=== PATIENT | female | born 1960 | race Caucasian/White ===

== ENCOUNTER → 2016-11-05 16:41 | Outpatient (CLI) | payer OTHER | END | disposition home or self-care (01) | LOC: D.MAMMO 10-29 10:00 | DX: Z12.31 Encounter for screening mammogram for malignant neoplasm of breast (principal) ==

== ENCOUNTER → 2017-02-19 19:53 | Outpatient (CLI) | payer OTHER | END | disposition home or self-care (01) | LOC: D.LABREF 19:53 | DX: N39.0 Urinary tract infection, site not specified (principal) ==

== ENCOUNTER → 2017-04-03 19:37 | Outpatient (CLI) | payer OTHER | END | disposition home or self-care (01) | LOC: D.LABREF 19:37 | DX: M17.11 Unilateral primary osteoarthritis, right knee (principal); Z11.8 Encounter for screening for other infectious and parasitic diseases ==

== ENCOUNTER 2017-04-15 05:35 | Inpatient (IN) | payer OTHER ==
[2017-04-12 11:26] LABS: BASOPHILS 0.6 % (0-2); EOSINOPHILS 3.2 % (0-7); HEMATOCRIT 41.9 % (36.0-48.0); HEMOGLOBIN 13.9 g/dL (12-16); IMMATURE GRANULOCYTES 0.4 % (0-5); LYMPHOCYTES 30.5 % (15-50); MCH 29.1 pg (26.0-34.0); MCHC 33.2 g/dL (31.0-37.0); MCV 87.8 fL (80.0-100.0); MEAN PLATELET VOLUME 10.3 fL (7.4-10.4); MONOCYTES 7.5 % (2-11); NEUTROPHILS 57.8 % (40-80); PLATELET COUNT 236 10x3/uL (130-400); RBC 4.77 10x6/uL (4.00-5.40); RDW 12.9 % (11.5-14.5); WBC 5.3 10x3/uL (4.8-10.8)
[2017-04-12 11:46] LABS: ANION GAP 9.9 mmol/L (8-16); CALCIUM 9.3 mg/dL (8.5-10.1); CARBON DIOXIDE 30.9 mmol/L (21.0-32.0); CREATININE - SERUM 0.9 mg/dL (0.6-1.3); POTASSIUM - SERUM 3.8 mmol/L (3.5-5.1)
[2017-04-12 11:51] LABS: APTT 25.7 SECONDS (22.8-39.4); INR 0.97 (0.85-1.17); PROTIME 12.7 SECONDS (11.6-15.0)
[2017-04-12 11:52] LABS: APPEARANCE HAZY (CLEAR); BACTERIA MODERATE /hpf (NONE SEEN); BILIRUBIN NEGATIVE (NEGATIVE); COLOR YELLOW (YELLOW); EPITHELIAL CELLS 0-5 /hpf (0-5); GLUCOSE NEGATIVE (NEGATIVE); KETONE NEGATIVE (NEGATIVE); LEUKOCYTE ESTERASE 2+ (NEGATIVE); MUCUS <1+ /lpf (NONE SEEN); NITRITE NEGATIVE (NEGATIVE); PROTEIN NEGATIVE (NEGATIVE); RED CELLS - URINE OCC /hpf (0-5); UROBILINOGEN NORMAL (NORMAL); WHITE CELLS - URINE 0-5 /hpf (0-5)
[2017-04-15] VITALS (11 sets, daily range): BP systolic 89–137; BP diastolic 54–91; Ht 160 cm; Wt 95.9 kg
[~2017-04-15] VITALS: Ht 160 cm; Wt 95.9 kg
[~2017-04-15 05:35] MED LIST: AZO YEAST PO; CATAPRES0.1 MG PO; FIBER-TABS625 MG PO; HYDROCHLOROTHIA25 MG PO; KLOR-CON 1010 MEQ PO; LEXAPRO20 MG PO; OMEPRAZOLE20 M1 PO; TENORMIN25 MG PO; VITAMIN D31000 UNI2 PO; ZYRTEC10 MG PO
--- NOTE | 2017-04-15 08:30 | NUR ---
DR NEWMAN NOTIFIED OF PATIENT'S UA RESULTS FROM 04/12/17, NO NEW ORDERS RECEIVED
[2017-04-15 09:10] LABS: APPEARANCE CLEAR (CLEAR); BILIRUBIN NEGATIVE (NEGATIVE); COLOR YELLOW (YELLOW); GLUCOSE NEGATIVE (NEGATIVE); KETONE NEGATIVE (NEGATIVE); LEUKOCYTE ESTERASE TRACE (NEGATIVE); NITRITE NEGATIVE (NEGATIVE); PROTEIN NEGATIVE (NEGATIVE); UROBILINOGEN NORMAL (NORMAL)
[2017-04-15 09:13] LABS: BACTERIA FEW /hpf (NONE SEEN); EPITHELIAL CELLS RARE /hpf (0-5); RED CELLS - URINE OCC /hpf (0-5); WHITE CELLS - URINE OCC /hpf (0-5)
--- NOTE | 2017-04-15 11:40 | NUR ---
PATIENT RECEIVED TO FLOOR FROM PACU VIA BED. NO SIGNS OF DISTRESS NOTED. VITAL SIGNS STABLE. DENIES PAIN. DRESSING TO RIGHT KNEE CLEAN, DRY AND INTACT. ICE PACK IN PLACE. SCDS ON BILATERALLY. ORIENTED TO ROOM. INCENTIVE SPIROMETER AND TEACHING PROVIDED. DEMONSTRATES CORRECT USE. SIDE RAILS UP X2. BED IN LOW POSITION. CALL LIGHT IN REACH. BED ALARM ON.
--- NOTE | 2017-04-15 13:25 | NUR ---
ALERT IN BED EATING LUNCH. TOLERATING WELL. VITAL SIGNS STABLE. FAMILY PRESENT. DENIES PAIN. SIDE RAILS UP X2. BED IN LOW POSITION. CALL LIGHT IN REACH.
--- NOTE | 2017-04-15 14:39 | NUR ---
PATIENT IN LOW SORIANO POSITION RESTING QUIETLY WITH EYES CLOSED. RESPIRATIONS EVEN AND UNLABORED. VITAL SIGNS STABLE. IV ABX INITIATED. SIDE RAILS UP X3. BED IN LOW POSITION. CALL LIGHT IN REACH. BED ALARM ON.
--- NOTE | 2017-04-15 16:10 | NUR ---
ALERT IN BED USING INCENTIVE SPIROMETER. DENIES PAIN. FAMIY PRESENT. SIDE RAILS UP X2. BED IN LOW POSITION. CALL LIGHT IN REACH. BED ALARM ON.
--- NOTE | 2017-04-15 17:40 | NUR ---
RIGHT LEG PLACED IN CPM. WELL TOLERATED. DENIES NEEDS. SIDE RAILS UP X2. BED IN LOW POSITION. CALL LIGHT IN REACH.
--- NOTE | 2017-04-15 20:52 | NUR ---
REC'D. IN BED LGE.#VISITORS AT BEDSIDE.ACEWRAP RT. KNEEIN CPM FOOT WARM WITH GOOD PULSE PRESENT .WILL CONTINUE TO MONITOR FOR ANY CHGES. AND IN NEUROVASCULAR STATUS AND FOLLOW CURRENT PLAN OF CARE
[2017-04-16] VITALS: BP 122/66
[2017-04-16 04:00] VITALS: BP 125/48
[2017-04-16 05:24] LABS: HEMATOCRIT 34.5 % (36.0-48.0); HEMOGLOBIN 11.4 g/dL (12-16); MCH 28.8 pg (26.0-34.0); MCV 87.1 fL (80.0-100.0); MEAN PLATELET VOLUME 10.4 fL (7.4-10.4); RBC 3.96 10x6/uL (4.00-5.40); RDW 12.8 % (11.5-14.5)
--- NOTE | 2017-04-16 08:00 | NUR ---
PT RECIEVED ON WALKING ROUNDS CPM IN PLACE TO RIGHT KNEE WITH SURGICAL DRESSING IN PLACE PIV NOTED TO BE SWOLLEN AND TENDER RESITED IV TO RIGHT FORARM 22 GA X 1 STICK. TOLERATED WELL. CALL LIGHT IN REACH SIDE RAILS UP X 2 VOICES ALL NEEDS DENIES PAIN OR DISCOMFORT BLOCKK STILL EFECTIVE HAS MINIMAL FEELING NOTED TO PLANTAR SIDE RIGHT FOOT NO FELLING NOTED TO DORSAL RIGHT FOOT.
[2017-04-16 08:08] VITALS: BP 130/64
--- NOTE | 2017-04-16 11:21 | NUR ---
* Is the patient Alert and Oriented? Yes 0 * How many steps to enter\exit or inside your home? ramp 0 * PCP Lisa 0 * Pharmacy [facility] 0 * Preadmission Environment Home with Family 0 * ADLs Independent 0 * Equipment Bedside Commode Rolling Walker Shower Chair 0 * List name and contact numbers for known caregivers / representatives who currently or will assist patient after discharge: Markus Parnell (spouse) [phone] 0 * Community resources currently utilized None 0 * Additional services required to return to the preadmission environment? Yes 0 * Can the patient safely return to the preadmission environment? Yes 0 * Has this patient been hospitalized within the prior 30 days at any hospital? No 0 Grand Total: 0 Patient Name: BIB PARNELL Admission Status: Elective Accout number: [id number] Admission Date: 04-15-2017 : 1960 Admission Diagnosis:UNILATERAL PRIMARY OSTEOARTHRITIS, RIGHT KNEE Attending: PUNEET Current LOS: 1 Anticipated DC Date: Planned Disposition: Home Primary Insurance: [employer] PPO Discharge Planning Comments: CM met with patient to assess discharge planning needs. Patient currently lives with her (Markus) where she is independent. She has a ramp to enter her home with 1 small step. She has a shower chair, walker, and elevated toilet seat at home. CPM machine will be delivered via [facility]. Eli notified. Patient plans on using [facility]. CM will continue to follow and assist with discharge planning needs. PCP: Lisa Pharmacy: [facility] Markus Parnell (Spouse) [phone] Lay Midwife: Bridget Sampson
[2017-04-16 12:00] VITALS: BP 128/62
--- NOTE | 2017-04-16 12:21 | NUR ---
PATIENT SITTING UP IN CHAIR WITH NO COMPLAINTS AT THIS TIME. IV INTACT. FAMILY AT SIDE. CALL LIGHT WITHIN REACH.
[2017-04-16 16:32] VITALS: BP 113/53
--- NOTE | 2017-04-16 16:41 | NUR ---
PT SAT UP IN CHAIR FOR SEVERAL HOURS TODAY UP WITH THERAPY WITH ASSIST. TOLERATED WELL FAMILY AT BEDSIDE. CALL LIGHT IN REACH BACK TO BED AFTER LUNCH.
[2017-04-16 20:00] VITALS: BP 135/60
--- NOTE | 2017-04-16 20:00 | NUR ---
REC'D. IN BED IN CPM SHARI. WELL.DENIES ANY C/O PAIN/NUMBNESS OR TINGLING AT PRESENT TIME PEDAL PULSE PRESENT. ACEWRAP DRY AND INTACT TO RT. LEG. WILL CONTINUE TO MONITOR FOR ANY CHGES IN NEUROVASCULAR STATUS AND FOLLOW CURRENT PLAN OF CARE.
[2017-04-17] VITALS: BP 155/78
--- NOTE | 2017-04-17 00:35 | NUR ---
EYES CLOSED RESPIRATIONS WITH EASE AND UNLABORED.
[2017-04-17 04:00] VITALS: BP 172/83
[2017-04-17 05:17] LABS: HEMATOCRIT 34.5 % (36.0-48.0); HEMOGLOBIN 11.4 g/dL (12-16); MCV 87.8 fL (80.0-100.0); MEAN PLATELET VOLUME 10.7 fL (7.4-10.4); RBC 3.93 10x6/uL (4.00-5.40); RDW 13.1 % (11.5-14.5); WBC 8.5 10x3/uL (4.8-10.8)
[2017-04-17 08:01] VITALS: BP 151/85
--- NOTE | 2017-04-17 08:01 | NUR ---
PRN PERCOCET ADMINISTERED FOR PAIN 10/10 INCISIONALLY. CPM REMAINS ON AND IN WORKING ORDER. BED ALARM ON AND SRX2. CALL LIGHT IN REACH AND LALO LEIGH IN ROOM ASSESSING PT.
--- NOTE | 2017-04-17 08:30 | NUR ---
CPM OFF AT THIS TIME. ICE TO RIGHT KNEE.
--- NOTE | 2017-04-17 09:10 | NUR ---
PRN TORADOL ADMINISTERED FOR PAIN 04/15. IV TO RIGHT FOREARM PATENT. UP TO CHAIR PER PHYSICAL THERAPY. DENIES NEEDS AT THIS TIME. CALL LIGHT IN REACH. WILL CONTINUE WITH PLAN OF CARE.
--- NOTE | 2017-04-17 10:25 | NUR ---
REMAINS UP IN CHAIR PER PHYSICAL THERAPY AT THIS TIME. SISTER AT BEDSIDE AND CALL LIGHT IN REACH, WILL CONTINUE WITH PLAN OF CARE.
[2017-04-17 11:54] VITALS: BP 93/52
[2017-04-17 16:30] VITALS: BP 118/60
--- NOTE | 2017-04-17 18:00 | NUR ---
CPM APPLIED TO RIGHT KNEE AND INSTRUCTED PT'S SPOUSE ON PROPER APPLICATION.
[2017-04-17 19:00] VITALS: BP 98/62
--- NOTE | 2017-04-17 19:30 | NUR ---
REC'D LYING IN BED. ALERT AND ORIENTED X4. REPORTED PAIN /. WILL ADMIN PM/AM MEDS PRESCRIBED. CPM IS ON RIGHT KNEE. TO BE REMOVED AT 2100. DENIED FURTHER NEEDS AT THIS TIME. INSTRUCTED TO CALL IF NEEDED ANYTHING. VERBALIZED UNDERTANDING. BED LOW, LOCKED, CALL LIGHT IN REACH, ALARM ON. NO DISTRESS NOTED. WILL CONT TO MONITOR.
[2017-04-18 04:00] VITALS: BP 140/78
--- NOTE | 2017-04-18 05:49 | NUR ---
EYES CLOSED RESPIRATIONS WITH EASE AND UNLABORED.
--- NOTE | 2017-04-18 07:22 | NUR ---
PRN PERCOCET ADMINISTERED FOR PAIN 8/10 INISIONALLY. DRESSING REMAINS TO RIGHT KNEE. CPM AND BED ALARM ON. WILL CONTINUE WITH PLAN OF CARE.
[2017-04-18 07:52] VITALS: BP 147/77
[2017-04-18] MEDS ORDERED: ELIQUIS2.5 MG PO (07:54)
[2017-04-18] MEDS ORDERED: PERCOCET 10/3251 TA1 PO (07:57)
--- NOTE | 2017-04-18 08:03 | NUR ---
SCHEDULED MEDICATIONS ADMINISTERED AT THIS TIME. CPM ON AND ASSESSMENT PERFORMED PER FLOWSHEET. DENIES NEEDS AT THIS TIME. WILL CONTINUE WITH PLAN OF CARE.
--- NOTE | 2017-04-18 14:00 | NUR ---
DRESSING TO RIGHT KNEE CHANGED USING STERILE TECNIQUE PER ORDER. DISCHARGE PAPERWORK REVIEWED AND NO QUESTIONS. IV TO RIGHT FOREARM D/C WITH CATH TIP INTACT.
== END 2017-04-18 14:30 | disposition home or self-care (01) | DRG 470 ==
LOC: D.SDCHOLD 05:35 → D.MS 05:35 → D.SDCHOLD 09:45 → D.MS 11:38 → D.SDCHOLD 12:30 → D.MS 04-18 14:30
PROVIDERS: ADMIT Orthopaedic Surgery
PROC: 0SRC0JZ Replacement of Right Knee Joint with Synthetic Substitute, Open Approach (ICD-10-PCS; principal; 2017-04-15 09:45)
DX: M17.11 Unilateral primary osteoarthritis, right knee (principal); E66.9 Obesity, unspecified; Z68.37 Body mass index [BMI] 37.0-37.9, adult; R12 Heartburn; I10 Essential (primary) hypertension